=== PATIENT | male | born 1980 | race Two or more races ===

== ENCOUNTER 2022-05-01 13:19 | Emergency (ER) | payer SELFPAY ==
[2022-05-01] MEDS ORDERED: SODIUM CHLORIDE 0.9% 1000 ML INFUS.BAG IV ONE ×3 (13:24→14:45)
[2022-05-01 13:44] VITALS: TEMP 98.2; BMI 19.1
[2022-05-01 14:09] LABS: ALBUMIN 5.2 g/dl (3.4-5.0); BILIRUBIN,TOTAL 1.5 mg/dl (0.2-1); CALCIUM 10.8 mg/dl (8.5-10); CREATININE 2.2 mg/dl (0.55-1.3); TOT PROT 8.3 g/dl (6.4-8.2)
[2022-05-01 14:31] LABS: HEMATOCRIT 48.5 % (35.4-49); HEMOGLOBIN 17.3 G/dL (11.7-16.9); MCH 32.4 pg (25.7-33.7); MCHC 35.6 g/dl (32.0-35.9); MEAN CELL VOLUME 90.8 fl (80-96); MEAN PLT VOLUME 8.1 fl (7.5-11.1); PLATELET COUNT 222.3 10^3/uL (134-434); RBC 5.34 10^6/uL (4.00-5.60); RDW 13.9 % (11.9-15.9); WHITE BLOOD COUNT 13.8 10^3/uL (4.0-10.8)
[2022-05-01 14:39] LABS: PLATELET ESTIMATE ADEQUATE
[2022-05-01 15:07] VITALS: BP 111/76; PULSE 66; RESP 16
== END 2022-05-01 15:25 | disposition left against medical advice (07) ==
LOC: FER 13:19
DX: N17.9 Acute kidney failure, unspecified (principal); R55 Syncope and collapse; R91.1 Solitary pulmonary nodule
CPT/HCPCS: 36415; 71045-TC-FY; 80053; 81003; 82962; 84484; 85027; 93005; 93308; 99284-25